=== PATIENT | male | born 1970 | race Caucasian/White ===

== ENCOUNTER 2024-09-15 02:25 | Emergency (ER) | payer SELFPAY ==
[~2024-09-15] VITALS: Ht 167.6 cm; Wt 73.5 kg
[2024-09-15] MEDS ORDERED: ONDANSETRON 4 MG TAB.RAPDIS ONE (03:28)
[2024-09-15] MEDS ORDERED: PANTOPRAZOLE 40 MG TABLET.DR PO ONE (03:28)
[2024-09-15] MEDS: PANTOPRAZOLE 40 MG TABLET.DR PO ONE (03:30)
[2024-09-15] MEDS: ONDANSETRON 4 MG TAB.RAPDIS PO ONE (03:30)
[2024-09-15 03:48] LABS: PLATELET COUNT (AUTO) 130 K/uL (150-450); RED BLOOD CELL COUNT(AUTO) 4.89 MIL/uL (4.5-6.0); RED CELL DISTRIBUTION WIDTH 13.2 % (11.5-15.0); WHITE BLOOD COUNT (AUTO) 8.7 K/uL (4.3-11.0)
[2024-09-15] MEDS ORDERED: ONDA4TAB5 PO (03:48)
[2024-09-15] MEDS ORDERED: PANT40TA2 PO (03:48)
[2024-09-15 04:05] LABS: ASPARTATE AMINOTRANSFERASE 23.0 U/L (15-37); CALCIUM, SERUM 8.9 mg/dL (8.5-10.1); CREATININE 0.8 mg/dL (0.6-1.3); INR 0.97 (0.91-1.10); SODIUM SERUM 140.0 mmol/L (136-145); TOTAL PROTEIN, SERUM 7.0 g/dL (6.4-8.2); UREA NITROGEN, BLOOD 17.0 mg/dL (7-18)
[2024-09-15 06:02] VITALS: BP 128/79; TEMP 98.7; O2SAT 99
== END 2024-09-15 06:02 | disposition home or self-care (01) ==
LOC: ER 02:29
DX: K92.1 Melena (principal); R14.0 Abdominal distension (gaseous); R11.2 Nausea with vomiting, unspecified; Z79.899 Other long term (current) drug therapy; Z90.49 Acquired absence of other specified parts of digestive tract
CPT/HCPCS: 99284; 74176; 85025; 83690; 83735; 85610; 36415; 80053; Q0162

== ENCOUNTER 2024-09-18 18:11 | Emergency (ER) | payer MEDICAID ==
[~2024-09-18] VITALS: Ht 167.6 cm; Wt 73.5 kg
[~2024-09-18 18:11] MED LIST: ONDA4TAB5 PO; PANT40TA2 PO
[2024-09-18] MEDS ORDERED: MAG HYDROX/AL HYDROX/SIMETH 30 ML UDC ONE (19:13)
[2024-09-18] MEDS ORDERED: FAMOTIDINE (20 MG) 20 MG TABLET ONE (19:13)
[2024-09-18] MEDS ORDERED: LIDOCAINE VISCOUS 2% UD 15 ML UDC ONE (19:13)
[2024-09-18] MEDS: LIDOCAINE VISCOUS 2% UD 15 ML UDC MM ONE (19:16)
[2024-09-18] MEDS: FAMOTIDINE (20 MG) 20 MG TABLET PO ONE (19:17)
[2024-09-18] MEDS: MAG HYDROX/AL HYDROX/SIMETH 30 ML UDC PO ONE (19:17)
[2024-09-18 19:20] LABS: PLATELET COUNT (AUTO) 132 K/uL (150-450); RED BLOOD CELL COUNT(AUTO) 4.58 MIL/uL (4.5-6.0); RED CELL DISTRIBUTION WIDTH 12.8 % (11.5-15.0); WHITE BLOOD COUNT (AUTO) 5.3 K/uL (4.3-11.0)
[2024-09-18 19:33] LABS: CALCIUM, SERUM 8.5 mg/dL (8.5-10.1); CREATININE 0.8 mg/dL (0.6-1.3); SODIUM SERUM 140.0 mmol/L (136-145); UREA NITROGEN, BLOOD 17.0 mg/dL (7-18)
[2024-09-18 19:38] LABS: ASPARTATE AMINOTRANSFERASE 20.0 U/L (15-37); TOTAL PROTEIN, SERUM 7.0 g/dL (6.4-8.2)
[2024-09-18] MEDS ORDERED: CLAR-45 PO (20:16)
[2024-09-18] MEDS ORDERED: AMOX500T2 PO (20:16)
[2024-09-18 20:34] VITALS: BP 143/96; TEMP 97.9; O2SAT 95
== END 2024-09-18 20:34 | disposition home or self-care (01) ==
LOC: ER 18:12
DX: R10.9 Unspecified abdominal pain (principal); R11.2 Nausea with vomiting, unspecified; K59.00 Constipation, unspecified; Z79.899 Other long term (current) drug therapy; Z85.828 Personal history of other malignant neoplasm of skin
CPT/HCPCS: 36415; 80048-TC; 80076-TC; 83690-TC; 85025-TC

== ENCOUNTER 2024-10-09 00:30 | Emergency (ER) | payer MEDICAID ==
[~2024-10-09] VITALS: Ht 172.7 cm; Wt 81.2 kg
[~2024-10-09 00:30] MED LIST changes: +AMOX500T2 PO; +CLAR-45 PO
[2024-10-09] MEDS ORDERED: SIMETHICONE 80 MG TAB.CHEW ONE (01:41)
[2024-10-09] MEDS ORDERED: MAG HYDROX/AL HYDROX/SIMETH 30 ML UDC ONE (01:41)
[2024-10-09] MEDS ORDERED: LIDOCAINE VISCOUS 2% UD 15 ML UDC ONE (01:41)
[2024-10-09] MEDS: MAG HYDROX/AL HYDROX/SIMETH 30 ML UDC PO ONE (01:42)
[2024-10-09] MEDS: SIMETHICONE 80 MG TAB.CHEW PO ONE (01:42)
[2024-10-09] MEDS: LIDOCAINE VISCOUS 2% UD 15 ML UDC MM ONE (01:42)
[2024-10-09 01:57] LABS: PLATELET COUNT (AUTO) 133 K/uL (150-450); RED BLOOD CELL COUNT(AUTO) 4.96 MIL/uL (4.5-6.0); RED CELL DISTRIBUTION WIDTH 13.1 % (11.5-15.0); WHITE BLOOD COUNT (AUTO) 6.2 K/uL (4.3-11.0)
[2024-10-09 02:05] LABS: CALCIUM, SERUM 9.0 mg/dL (8.5-10.1); CREATININE 1.0 mg/dL (0.6-1.3); SODIUM SERUM 140.0 mmol/L (136-145); UREA NITROGEN, BLOOD 18.0 mg/dL (7-18)
[2024-10-09 02:12] LABS: ASPARTATE AMINOTRANSFERASE 26.0 U/L (15-37); TOTAL PROTEIN, SERUM 7.3 g/dL (6.4-8.2)
[2024-10-09 02:32] LABS: APPEARANCE,URINE CLEAR (CLEAR); BLOOD, URINE NEGATIVE Ery/uL (NEGATIVE); LEUKOCYTE ESTERASE ,URINE NEGATIVE (NEGATIVE); NITRITE, URINE NEGATIVE (NEGATIVE); UGLUCOSE NEGATIVE (NEGATIVE)
[2024-10-09] MEDS ORDERED: PANT40TA2 PO (03:04)
[2024-10-09 03:16] VITALS: BP 136/77; TEMP 98.5; O2SAT 98
== END 2024-10-09 03:17 | disposition home or self-care (01) ==
LOC: ER 00:30
DX: R14.0 Abdominal distension (gaseous) (principal); K21.9 Gastro-esophageal reflux disease without esophagitis; Z79.899 Other long term (current) drug therapy
CPT/HCPCS: 36415; 74018; 80048-TC; 80076-TC; 83690-TC; 84484-TC; 85025-TC

== ENCOUNTER 2025-01-12 20:43 | Emergency (ER) | payer MEDICAID, OTHER | END 2025-01-12 23:42 | disposition left against medical advice (07) | LOC: ER 20:47 | DX: I10 Essential (primary) hypertension (principal); Z53.21 Procedure and treatment not carried out due to patient leaving prior to being seen by health care provider ==